=== PATIENT | female | born 1980 | race Caucasian/White ===

== ENCOUNTER 2016-12-13 19:27 | Emergency (ER) | payer MEDICAID, OTHER ==
[2016-12-13 20:24] LABS: BLOOD UREA NITROGEN 8 mg/dL (7-17); CALCIUM 9.4 mg/dL (8.4-10.2); CHLORIDE 103 mmol/L (98-107); CREATININE 0.9 mg/dL (0.5-1.0); EST GLOMERULAR FILTRATION RATE > 60 mL/min; GLUCOSE 88 mg/dL (70-100); POTASSIUM 3.7 mmol/L (3.5-5.1); SODIUM 139 mmol/L (137-145)
[2016-12-13] MEDS ORDERED: KETOROLAC TROMETHAMINE 30 MG/ML VIAL ONE (20:43)
[2016-12-13] MEDS ORDERED: HYDROmorphone HCL 1 MG/ML SYR ONE ×2 (21:02→21:41)
[2016-12-13] MEDS ORDERED: HYDROmorphone HCL 2 MG TABLET PO ONE (21:48)
--- NOTE | 2016-12-13 22:10 | ER NURSING DOCUMENTATION ---
[facility] Name:Nicolasa Wasserman Age:36 yrs Sex:Female :1980 Arrival Date:12/13/2016 Time:19:27 Bed3 Private MD: Diagnosis:Renal Colic Presentation: 12/13 19:32 Presenting complaint: Patient states: Pt. states that she has been having left abdomen ke and left flank pain x 1.5 weeks, she has history of kidney stones and that is what she suspects that this is. She was seen in [place] ER 2 days ago after pain intensified and she was vomiting and unable to keep liquids down - they did an US to confirm that there was no obstruction, no CT done. Tonight increased pain and vomiting again - home meds not controlling symptoms. Transition of care: Home. Notified ED Physician of Dr. Hernandez notified. 19:32 Acuity: LAN 3 ke 19:32 Method Of Arrival: Private Vehicle Triage Assessment: 19:56 General: Appears uncomfortable, well developed, well nourished, Behavior is ke cooperative, pleasant, quiet. Pain: Complains of pain in left upper quadrant and left lower quadrant Pain radiates to left low back Pain currently is 8 out of 10 on a pain scale. EENT: Oral mucosa is moist. Neuro: Level of Consciousness is awake, alert, Oriented to person, place, time, event, Moves all extremities. Cardiovascular: Capillary refill < 3 seconds Heart tones S1 S2 present. Respiratory: Airway is patent Trachea midline Breath sounds are clear bilaterally. GI: Abdomen is flat, non- distended Bowel sounds present X 4 quads. Abdomen is tender to palpation in left upper quadrant and left lower quadrant. : Urine is clear. Derm: Skin is intact, is healthy with good turgor, Skin is pale. Musculoskeletal: Circulation, motion, and sensation intact Capillary refill < 3 seconds Range of motion intact in all extremities. Historical: - Allergies: PENICILLINS; - Home Meds: 1. hydrocodone-acetaminophen Oral 2. Ibuprofen Oral 3. Zofran Oral 4. Flomax Oral 5. Naproxen Oral - PMHx: KIDNEY STONES; Asthma; - PSHx: left shoulder surgery; Endometriosis surgery; APPENDECTOMY; - Tetanus: < 10 years. - Ebola Screening: : Patient negative for fever greater than or equal to 101.5 degrees Fahrenheit, and additional compatible Ebola Virus Disease symptoms. Patient denies exposure to infectious person. Patient denies travel to an Ebola-affected area in the 21 days before illness onset. No symptoms or risks identified at this time. . - Immunization history: Flu Vaccine < 1 year. - Social history: Smoking status: Patient states was never smoker of tobacco. Screenin:14 Infectious Disease Risk None. Abuse screen: Denies threats or abuse. Denies injuries ke from another. Nutritional screening: No deficits noted. Assessment: 20:50 Reassessment: Pt. says pain is only minimally improved after Toradol. Dr. Gaviria ordered ke Dilaudid as noted.. 21:10 Reassessment: Pain down to 6/10 after first dose of Dilaudid. ke 21:25 Reassessment: Pain down to 4/10 after second dose of Dilaudid.. ke 21:45 Reassessment: Pain down to 1 after 3rd dose of Dilaudid.. ke 22:07 Reassessment: Patient states feeling better. Pain still at 1 - preparing for DC. ke Vital Signs: 19:40 BP 140 / 68; Pulse 80; Resp 14; Temp 97.7; Pulse Ox 98% on R/A; Weight 63.5 kg; Height ke 5 ft. 9 in. (175.26 cm); Pain 8/10; 20:37 BP 115 / 78; Pulse 78; Resp 14; Pulse Ox 94% on R/A; ke 21:15 BP 118 / 74; Pulse 74; Resp 14; Pulse Ox 96% on R/A; Pain 6/10; ke 21:35 BP 116 / 77; Pulse 75; Resp 14; Pain 4/10; ke 22:09 BP 124 / 80; Pulse 74; Resp 14; Pulse Ox 95% ; ke 19:40 Body Mass Index 20.67 (63.50 kg, 175.26 cm) ke ED Course: 19:29 Patient arrived in ED. ma1 19:32 Akiko Rick, RN is Primary Nurse. ke 19:45 Inserted peripheral IV: 20 gauge in left forearm and blood collected. ke 19:52 Triage completed. ke 20:[address] Gaviria notified. ke 20:12 Valuables Remains with patient Patient has correct armband on for positive ke identification. Placed in gown. Bed in low position. Call light in reach. 20:14 Urine collected. Clean catch specimen. ke 20:30 Sherman Gaviria MD is Attending Physician. tl1 22:08 Discontinued intact, bleeding controlled, pressure dressing applied, No ke redness/swelling at site. Administered Medications: Completed: NS 0.9% 1000 ml IV at 100 ml/hr once 19:45 Drug: NS 0.9% 1000 ml; Route: IV; Rate: 100 ml/hr; Site: left forearm; ke 22:07 Follow up: IV Status: Completed infusion; IV Intake: 1000ml ke 20:32 Drug: Toradol 15 mg; Route: IVP; Site: left forearm; ke 20:56 Follow up: Response: Pain is unchanged, physician notified ke 20:56 Drug: Dilaudid 0.5 mg; Route: IVP; Site: left forearm; ke 21:24 Follow up: Response: Pain is decreased ke 21:15 Drug: Dilaudid 0.5 mg; Route: IVP; Site: left forearm; ke 21:28 Follow up: Response: Pain is decreased ke 21:38 Drug: Dilaudid 0.5 mg; Route: IVP; Site: left forearm; ke 22:10 Follow up: Response: Pain is decreased ke 21:38 Drug: Dilaudid 2 mg; {Note: Dispensed to go home with pt..} Route: PO; ke 22:10 Follow up: Response: Dispensed at discharge. ke Point of Care Testing: Urine Dip: 20:15 pH: 6.5; ; Specific [place]: 1.025; Ketones: 1 mg/dL; Glucose: Negative; Protein: ke Negative; Leukocytes: Negative; Nitrite: Negative ; Blood: Non Hemolyzed Trace; Bilirubin: Negative ; Urobilinogen: Normal Intake: 22:07 IV: 1000ml; Total: 1000ml. ke Outcome: 21:28 Discharge ordered by . tl1 22:08 Discharged to home ke 22:08 Condition: improved 22:08 Discharge instructions given to patient, Instructed on discharge instructions, follow up and referral plans. medication usage, no drinking with medication, urine strainer. 22:09 Patient left the ED. ke Signatures: Sherman Gaviria MD MD tl1 Akiko Rick RN RN ke Addison, Melissa neEtienne
--- NOTE | 2016-12-13 22:10 | ER PHYSICIAN DOCUMENTATION ---
Physician Documentation [facility] Name:Nicolasa Wasserman Age:36 yrs Sex:Female :1980 Arrival Date:12/13/2016 Time:19:27 Bed3 Private MD: Sherman Sanford Disposition: 12/13 21:45 Chart complete. tl1 Disposition: 12/13/16 21:28 Discharged to Home/Self Care. Impression: Renal Colic. - Condition is Good. - Discharge Instructions: KIDNEY STONE w/ Colic. - Prescriptions for Dilaudid 2 mg Oral Tablet - take 1 tablet by ORAL route every 6 hours As needed; 10 tablet. Zofran 4 mg Oral Tablet - take 1-2 tablet by ORAL route every 4-6 hours As needed; 10 tablet. - Medical Reconciliation form form. - Follow up: Private Physician; When: 4- 6 days; Reason: Recheck today's complaints, Continuance of care. - Problem is new. - Symptoms have improved. HPI: 20:31 This 36 yrs old Female presents to ER via Private Vehicle with complaints of tl1 Possible Kidney Stone. 21:32 She has a h/o kidney stones and has been told she has several in both kidneys, tl1 diagnosed by CT X 2.. She has had renal colic twice in the last year, with the 3rd episode coming on 3 days ago; this is typical. She was seen yesterday at [facility] where a renal u/s and u/a were reportedly negative. She was treated with naproxen, HC/APAP, and Flomax. Today the pain has been persistent, waxing and waning, and with the nausea and vomiting, she has not been able to keep down pain medication. She denies f/c/s, gross hematuria, dysuria. No vag d/c or bleeding. She says she had what sounds like an endometrial ablation for endometriosis, and that she cannot become . Denies diarrhea, blood in stools. She is a nurse here, on Med Surg.. Historical: - Allergies: PENICILLINS; - Home Meds: 1. hydrocodone-acetaminophen Oral 2. Ibuprofen Oral 3. Zofran Oral 4. Flomax Oral 5. Naproxen Oral - PMHx: KIDNEY STONES; Asthma; - PSHx: left shoulder surgery; Endometriosis surgery; APPENDECTOMY; - Tetanus: < 10 years. - Ebola Screening: : Patient negative for fever greater than or equal to 101.5 degrees Fahrenheit, and additional compatible Ebola Virus Disease symptoms. Patient denies exposure to infectious person. Patient denies travel to an Ebola-affected area in the 21 days before illness onset. No symptoms or risks identified at this time. . - Immunization history: Flu Vaccine < 1 year. - Social history: Smoking status: Patient states was never smoker of tobacco. ROS: 21:40 Abdomen/GI: Positive for nausea, vomiting, Negative for diarrhea, constipation, tl1 hematemesis, black/tarry stool, rectal bleeding. 21:40 : Positive for flank pain, Negative for injury or acute deformity, urinary symptoms, hematuria, burning with urination, difficulty urinating, foul smelling urine, vaginal bleeding, vaginal discharge. Exam: 21:40 Head/Face: Normocephalic, atraumatic. tl1 21:40 Eyes: Pupils equal round and reactive to light, extra-ocular motions intact. Lids and tl1 lashes normal. Conjunctiva and sclera are non-icteric and not injected. Cornea within normal limits. Periorbital areas with no swelling, redness, or edema. 21:40 Constitutional: The patient appears alert, awake, in obvious pain, restless, uncomfortable. 21:40 Cardiovascular: Rate: normal, Rhythm: regular, Heart sounds: normal, Edema: is not appreciated, JVD: is not appreciated. 21:40 Respiratory: the patient does not display signs of respiratory distress, Respirations: normal, Breath sounds: are normal. 21:40 Abdomen/GI: Inspection: abdomen appears normal, Palpation: soft, moderate abdominal tenderness, in the left lower quadrant, voluntary guarding, is not appreciated, involuntary guarding, is not appreciated, no appreciated organomegaly. 21:40 Back: CVA tenderness, that is moderate, is noted on the left. 21:40 : Bladder: is normal, tenderness, is not appreciated. 21:40 Skin: Exam negative for acute changes. 21:40 Neuro: Exam negative for acute changes. Vital Signs: 19:40 BP 140 / 68; Pulse 80; Resp 14; Temp 97.7; Pulse Ox 98% on R/A; Weight 63.5 kg; Height ke 5 ft. 9 in. (175.26 cm); Pain 8/10; 20:37 BP 115 / 78; Pulse 78; Resp 14; Pulse Ox 94% on R/A; ke 21:15 BP 118 / 74; Pulse 74; Resp 14; Pulse Ox 96% on R/A; Pain 6/10; ke 21:35 BP 116 / 77; Pulse 75; Resp 14; Pain 4/10; ke 22:09 BP 124 / 80; Pulse 74; Resp 14; Pulse Ox 95% ; ke 19:40 Body Mass Index 20.67 (63.50 kg, 175.26 cm) ke MDM: 20:30 Patient medically screened. tl1 20:53 Data reviewed: vital signs, nurses notes, lab test result(s), electrolytes, urinalysis, tl1 hematuria, HCG is negative, and as a result, I will discharge patient. 21:42 ED course: Pain, nausea and vomiting well controlled with toradol, dilaudid and zofran. tl1 She was eager to go home.. 12/13 20:25 Order name: BASIC METABOLIC PANEL; Complete Time: 20:53 EDMS 12/13 20:52 Interpretation: Normal: SODIUM 139; POTASSIUM 3.7; CHLORIDE 103; CARBON DIOXIDE 27; tl1 GLUCOSE 88; BLOOD UREA NITROGEN 8; CREATININE 0.9; EST GLOMERULAR FILTRATION RATE > 60. 12/13 20:28 Order name: HCG, SERUM; Complete Time: 20:53 EDMS 12/13 20:53 Interpretation: Normal: HCG, SERUM NEGATIVE. tl1 12/13 20:08 Order name: Urine Dip; Complete Time: 20:09 ke 12/13 20:08 Order name: Iv Saline Lock; Complete Time: 20:09 ke Dispensed Medications: Completed: NS 0.9% 1000 ml IV at 100 ml/hr once 19:45 Drug: NS 0.9% 1000 ml; Route: IV; Rate: 100 ml/hr; Site: left forearm; ke 22:07 Follow up: IV Status: Completed infusion; IV Intake: 1000ml ke 20:32 Drug: Toradol 15 mg; Route: IVP; Site: left forearm; ke 20:56 Follow up: Response: Pain is unchanged, physician notified ke 20:56 Drug: Dilaudid 0.5 mg; Route: IVP; Site: left forearm; ke 21:24 Follow up: Response: Pain is decreased ke 21:15 Drug: Dilaudid 0.5 mg; Route: IVP; Site: left forearm; ke 21:28 Follow up: Response: Pain is decreased ke 21:38 Drug: Dilaudid 0.5 mg; Route: IVP; Site: left forearm; ke 22:10 Follow up: Response: Pain is decreased ke 21:38 Drug: Dilaudid 2 mg; {Note: Dispensed to go home with pt..} Route: PO; ke 22:10 Follow up: Response: Dispensed at discharge. Point of Care Testing: Urine Dip: 20:15 pH: 6.5; ; Specific [place]: 1.025; Ketones: 1 mg/dL; Glucose: Negative; Protein: ke Negative; Leukocytes: Negative; Nitrite: Negative ; Blood: Non Hemolyzed Trace; Bilirubin: Negative ; Urobilinogen: Normal Signatures: Sherman Gaviria MD MD tl1 Akiko Rick RN RN ke
== END 2016-12-13 22:10 | disposition home or self-care (01) ==
LOC: ER 19:27
DX: N23 Unspecified renal colic (principal); R10.32 Left lower quadrant pain; M54.5 Low back pain; R11.0 Nausea; Z87.442 Personal history of urinary calculi; Z79.899 Other long term (current) drug therapy
CPT/HCPCS: 80048; 84703; 96361; 96374; 96375; 96376; 99284; J1170; J1885

== ENCOUNTER 2016-12-18 11:49 | Emergency (ER) | payer MEDICAID, OTHER ==
[2016-12-18 12:26] LABS: BASOPHIL# 0.1 X 10^3uL (0.0-0.1); BASOPHILS 1.1 % (0.0-2.0); EOSINOPHILS 2.1 % (0.0-6.0); EOSINOPHILS# 0.1 X 10^3uL (0.0-0.4); HEMATOCRIT 43.6 % (36.0-48.0); HEMOGLOBIN 14.7 g/dL (12.0-16.0); LYMPHOCYTES 38.6 % (20.0-40.0); LYMPHOCYTES# 1.9 X 10^3uL (0.8-3.8); MEAN CELL VOLUME 92.1 fL (80.0-100.0); MEAN CORPUS. HGB CONCENTRATION 33.7 g/dL (32.0-36.0); MEAN PLATELET VOLUME 7.3 fL (7.4-10.4); MONOCYTES 9.4 % (2.0-10.0); MONOCYTES# 0.5 X 10^3uL (0.2-1.0); NEUTROPHILS 48.8 % (54.0-75.0); NEUTROPHILS# 2.4 X 10^3uL (2.6-6.7); PLATELET COUNT 290 X 10^3uL (130-440); RED BLOOD COUNT 4.74 X 10^6uL (4.20-6.10); RED CELL DISTRIBUTION WIDTH 12.8 % (11.5-14.5)
[2016-12-18 12:31] LABS: BLOOD UREA NITROGEN 16 mg/dL (7-17); CALCIUM 9.8 mg/dL (8.4-10.2); CHLORIDE 105 mmol/L (98-107); CREATININE 1.1 mg/dL (0.5-1.0); EST GLOMERULAR FILTRATION RATE 59 mL/min; POTASSIUM 3.8 mmol/L (3.5-5.1); SODIUM 141 mmol/L (137-145)
[2016-12-18] MEDS ORDERED: HYDROmorphone HCL 1 MG/ML SYR ONE ×3 (12:39→14:56)
[2016-12-18 12:40] LABS: GLUCOSE 49 mg/dL (70-100)
[2016-12-18] MEDS ORDERED: ONDANSETRON HCL 4 MG/2 ML VIAL ONE (12:40)
[2016-12-18] MEDS ORDERED: KETOROLAC TROMETHAMINE 30 MG/ML VIAL ONE (12:40)
--- NOTE | 2016-12-18 13:31 | CT REPORT ---
HISTORY: Flank pain. COMPARISON: None. TECHNIQUE: This examination was performed using automated exposure control, adjustment of mA or kV according to patient size, and/or use of iterative reconstruction technique. Contiguous axial images of the abdom en and pelvis were obtained without oral or IV contrast. Coronal reconstructions. FINDINGS: Lung bases: Axial image 10 series 2 demonstrates an indeterminate left lower lobe noncalcified nonspe cific 4 mm pulmonary nodule. Axial image 9 series 2 demonstrates an additional left lower lobe latera l 4 mm pulmonary nodule. Axial image 8 series 2 demonstrates a indeterminate 4 mm right lower lung pu lmonary nodule. Liver: Unremarkable. Biliary: Unremarkable. Spleen: Unremarkable. Pancreas: Unremarkable. Adrenal glands: Unremarkable. Urinary tract: No urinary tract calculus or hydronephrosis. The tiny calcifications seen within the p tirso on axial image 82 and sagittal images 36-40 series 4 are favored to represent pelvic phlebolith s or vascular calcifications. Bowel: High-density material noted at the level of cecum consistent with likely post appendectomy arti nges; recommend clinical correlation patient's operative history. The pelvic cyst identified and ther e are no secondary signs of appendicitis seen. Mild colon constipation otherwise the bowel is unremar kable in appearance. Anterior abdominal wall: Small fat containing periumbilical hernia. Mesentery/peritoneum/omentum: No mesenteric lymphadenopathy or inflammatory changes. Retroperitoneum: No retroperitoneal lymphadenopathy is identified. Aortoiliac system is within norm al limits. Pelvis: 4.5 cm low density collection within the right ovary. Pelvic viscera is otherwise unremarkabl e. Osseous structures: No suspicious osseous lytic or blastic lesions identified. Critical results were communicated with SINGH GUTIÉRREZ MD at 12/18/2016 1:29 PM. IMPRESSION: No evidence of urinary tract calculus or hydronephrosis. Indeterminate 4.5 cm low-density lesion within the right adnexa. Given patient's symptoms are on the right consider pelvic ultrasound for further evaluation. Indeterminate bilateral lower lung pulmonary nodules on average measuring 4 mm in greatest dimension. Recommend follow-up CT chest in 6 months. Final Electronic Signature: This report was electronically signed by Mitchell Ewing MD on 12/18/2016 1:2 9 PM. [email or web address] /
--- NOTE | 2016-12-18 15:50 | ER PHYSICIAN DOCUMENTATION ---
Physician Documentation [facility] Name:Nicolasa Wasserman Age:36 yrs Sex:Female :1980 Arrival Date:12/18/2016 Time:11:49 Bed3 Private MD:Sydni Jay ED, Chris Disposition: 12/18/16 14:48 Discharged to Home/Self Care. Impression: Ovarian Cyst - : 4 cm size; Complex, Pelvic Pain. - Condition is Fair. - Discharge Instructions: OVARIAN CYST, PELVIC PAIN, Unknown Cause. - Prescriptions for Zofran 4 mg Oral - take 1 tablet by ORAL route every 6 hours; 6 tablet. Hydrocodone- Acetaminophen 5-325 mg Oral Tablet - take 1 tablet by ORAL route every 6 hours As needed; 20 tablet. - Medical Reconciliation form form. - Follow up: Marcio Arroyo MD; When: Tomorrow; Reason: Recheck today's complaints, Continuance of care. - Problem is new. - Symptoms have improved. - Notes: Take Ibuprofen 600mg by mouth every 6 hours with food for 2 - 3 days. Take Hydrocodone one tab by mouth every 6 hours with food if needed for severe pain Take Zofran 4mg under your tongue every 6 hours as needed for nausea or vomiting Drink plenty of water every day. Follow up with Dr. Dent at the [facility] tomorrow at 3:00 PM. HPI: 12/18 11:55 This 36 yrs old Female presents to ER via Private Vehicle with complaints of cd Possible Kidney Stone. 11:55 The patient presents with abdominal pain in the left lower quadrant. Onset: The cd symptoms/episode began/occurred acutely, last night, Patient was seen by Dr. Miguel Gaviria in the Emergency Department 5 days ago for very similar pain and was diagnosed with a kidney stone. She felt better over the next two days, but the pain has returned especially last night and this morning. She has had kidney stones in the past. No CT Scan of the abdomen was performed to confirm the presence of a stone or obstruction.. The symptoms do not radiate. Associated signs and symptoms: Pertinent positives: anorexia, nausea, vomiting, Pertinent negatives: blood in stools, chest pain, diarrhea, dysuria, fever, hematuria, shortness of breath, vomiting blood. Modifying factors: The symptoms are alleviated by nothing, the symptoms are aggravated by touching the area. Severity of pain: At its worst the pain was severe in the emergency department the pain is unchanged. The patient has experienced a previous episode, approximately 5 days ago. Historical: - Allergies: PENICILLINS; - Home Meds: 1. hydromorphone Oral (Last dose: 12/18/2016 02:00) 2. Motrin Oral (Last dose: 12/18/2016 06:00) 3. Ambien Oral 4. Albuterol Nebulizer - Tetanus: < 10 years. - Ebola Screening: : Patient negative for fever greater than or equal to 101.5 degrees Fahrenheit, and additional compatible Ebola Virus Disease symptoms. Patient denies exposure to infectious person. Patient denies travel to an Ebola-affected area in the 21 days before illness onset. . - Immunization history: Flu Vaccine < 1 year. - Social history: Smoking status: Patient states was never smoker of tobacco. ROS: 14:00 ENT: Negative for injury, pain, epistaxis and discharge. cd Cardiovascular: Negative for chest pain, palpitations, edema and pleuritic pain. Respiratory: Negative for shortness of breath, dyspnea on exertion, cough, sputum production, wheezing, hemoptysis and pleuritic chest pain. Back: Negative for injury, pain or muscle spasms. : Negative for injury, bleeding, discharge, dysuria, frequency, urgency and swelling. MS/Extremity: Negative for injury, deformity, edema, calf tenderness, pain or coldness. Skin: Negative for injury, rash, itching and discoloration. 14:00 Neuro: Negative for headache, weakness, numbness, tingling, and seizure. cd 14:00 Constitutional: Positive for poor PO intake, Negative for chills, fever. 14:00 Abdomen/GI: Positive for abdominal pain, nausea, vomiting, anorexia, Negative for diarrhea, constipation, abdominal distension, hematemesis, black/tarry stool, rectal bleeding. 14:00 All other systems are negative. Exam: ENT: Nares patent. No nasal discharge, no septal abnormalities noted. Tympanic membranes are normal and external auditory canals are clear. Oropharynx with no redness, swelling, or masses, exudates, or evidence of obstruction, uvula midline. Mucous membranes dry Cardiovascular: Regular rate and rhythm with a normal S1 and S2. No gallops, murmurs, or rubs. Normal PMI, no JVD. No pulse deficits. Respiratory: Lungs have equal breath sounds bilaterally, clear to auscultation and percussion. No rales, rhonchi or wheezes noted. No increased work of breathing, no retractions or nasal flaring. Back: No spinal tenderness. No costovertebral tenderness. Full range of motion. Skin: Warm, dry with normal turgor. Normal color with no rashes, no lesions, and no evidence of cellulitis. MS/ Extremity: Pulses equal, no cyanosis. Neurovascular intact. Full, normal range of motion. 14:15 Neuro: Awake and alert, GCS 15, oriented to person, place, time, and situation. cd Cranial nerves II-XII grossly intact. Motor strength 5/5 in all extremities. Sensory grossly intact. Cerebellar exam normal. Normal gait. 14:15 Constitutional: The patient appears alert, awake, non-diaphoretic, non-toxic, well developed, well nourished, anxious, in obvious distress, moderately distressed. 14:15 Abdomen/GI: Inspection: abdomen appears normal, Bowel sounds: normal, Palpation: moderate abdominal tenderness, in the left lower quadrant, but increased in the RLQ when palpating, Rectal exam: Indicators: McBurney's point is tender, Merino's sign is negative. Vital Signs: 12:01 BP 120 / 81; Pulse 100; Resp 20; Temp 99.9(TE); Pulse Ox 100% ; Pain 6/10; cb 12:42 BP 106 / 90; Pulse 92; Pulse Ox 95% on R/A; cb 13:08 BP 116 / 79; Pulse 67; Pulse Ox 99% on R/A; cb 13:30 BP 110 / 69; Pulse 70; Pulse Ox 97% on R/A; cb Saira Coma Score: 14:15 Eye Response: spontaneous(4). Verbal Response: oriented(5). Motor Response: obeys cd commands(6). Total: 15. MDM: 11:56 Patient medically screened. cd 12:05 Data interpreted: Pulse oximetry: on room air is 97 %. Interpretation: normal. cd 12:10 Differential diagnosis: bowel obstruction, diverticulitis, Ectopic , cd Endometriosis, non-specific abd pain, Ovarian Torsion, Pyelonephritis, Ureterolithiasis, urinary tract infection, Ruptured Ovarian Cyst. 14:15 Data reviewed: vital signs, nurses notes, old medical records, lab test result(s), cd radiologic studies, CT scan, ultrasound, and as a result, I will discharge patient, initiate a consult, from a [employer], administer IV fluids, NS bolus, NS maintenence, prescribe pain medication, Dilaudid. 14:40 Counseling: I had a detailed discussion with the patient and/or guardian regarding: the cd historical points, exam findings, and any diagnostic results supporting the discharge/admit diagnosis, lab results, radiology results, the need for outpatient follow up, for a recheck, for a referral to a specialist, an OB/Gyne specialist, to return to the emergency department if symptoms worsen or persist or if there are any questions or concerns that arise at home. Response to treatment: the patient's symptoms have markedly improved after treatment, the patient's condition has returned to base line, and as a result, I will discharge patient. Physician consultation: Marcio Arroyo MD was called at 14:35, was contacted at 14:36, regarding consult, patient's condition, outpatient follow-up, tomorrow, and will see patient in office, tomorrow. 12/18 12:27 Order name: CBC AUTO DIF, MDIF/RMOR IF IND; Complete Time: 13:34 EDMA 12/20 12:33 Interpretation: Normal. 12/18 12:31 Order name: HCG, SERUM; Complete Time: 13:34 EDMS 12/20 12:33 Interpretation: Normal. 12/18 12:41 Order name: BASIC METABOLIC PANEL; Complete Time: 13:34 EDMS 12/20 12:34 Interpretation: Normal Except: GLUCOSE 49; Hypoglycemia. 12/18 13:34 Order name: CAT SCAN; A[place] [id number]; Complete Time: 12:34 EDMA 12/20 12:34 Interpretation: Abnormal: See report. 12/18 11:57 Order name: I & O; Complete Time: 12:19 12/18 11:57 Order name: NPO; Complete Time: 12:19 12/18 11:57 Order name: Pulse Ox Continuous; Complete Time: 12:19 12/18 11:57 Order name: Urine Strainer; Complete Time: 12:19 12/18 13:35 Order name: Accucheck; Complete Time: 13:53 cd Dispensed Medications: 11:42 Drug: Zofran 4 mg; Route: IVP; Infused Over: 2 mins; Site: left antecubital; cb 15:40 Follow up: Response: Nausea is decreased cb 11:45 Drug: Dilaudid 1 mg; Route: IVP; Site: left antecubital; cb 15:40 Follow up: Response: Pain is decreased cb 12:40 Drug: NS 0.9% 1000 ml; Route: IV; Rate: bolus; Site: left antecubital; cb 13:00 Follow up: IV Status: Infusion continued; IV Intake: 1000ml cb 12:41 Drug: Toradol 30 mg; Route: IVP; Site: left antecubital; cb 15:39 Follow up: Response: No adverse reaction cb 13:15 Drug: NS 0.9% 1000 ml; Route: IV; Rate: 250 ml/hr; Site: left antecubital; cb 15:00 Follow up: IV Status: Completed infusion; IV Intake: 1000ml cb 13:55 Drug: Dilaudid 0.5 mg; Route: IVP; Site: left antecubital; cb 15:40 Follow up: Response: Pain is decreased cb 15:00 Drug: Dilaudid 0.5 mg; Route: IVP; Site: left antecubital; cb 15:41 Follow up: Response: Pain is decreased cb Point of Care Testing: Blood Glucose: 13:30 Blood Glucose: 86 mg/dL; cb Urine Dip: 14:56 pH: 6.5; ; Specific [place]: 1.025; Ketones: Negative; Glucose: Negative; Protein: ma Negative; Leukocytes: Negative; Nitrite: Negative ; Blood: Negative; Bilirubin: Negative ; Urobilinogen: Normal Ranges: Critical Glucose Levels:Adult <50 mg/dl or >400 mg/dl <40 mg/dl or >180 mg/dl Signatures: Mary Can RN RN cb Daley, Chris, MD MD cd
--- NOTE | 2016-12-18 15:50 | ER NURSING DOCUMENTATION ---
Nurse's Notes [facility] Name:Nicolasa Wasserman Age:36 yrs Sex:Female :1980 Arrival Date:12/18/2016 Time:11:49 Bed3 Private MD:Sydni Jya Diagnosis:Ovarian Cyst-: 4 cm size; Complex;Pelvic Pain Presentation: 12/18 11:58 Presenting complaint: Patient states: possible kidney stone. Transition of care: Home. cb 11:58 Method Of Arrival: Private Vehicle cb 11:58 Notified ED Physician of patient's arrival and CC Dr. Hernandez notified. cb 11:58 Acuity: LAN 3 cb Triage Assessment: 11:58 General: Appears in no apparent distress, well groomed, Behavior is cooperative. cb 11:58 Pain: Complains of pain in posterior aspect of left lateral abdomen and left lower cb quadrant Pain radiates to left femoral area Pain currently is 6 out of 10 on a pain scale. EENT: No deficits noted. Neuro: Level of Consciousness is awake, alert, Oriented to person, place, time, event. Cardiovascular: Pulses are 2+ in left radial artery. Respiratory: Airway is patent Trachea midline Respiratory effort is even, unlabored, Respiratory pattern is regular, symmetrical, Breath sounds are clear in right upper lobe, left upper lobe, right middle lobe, left lower lobe and right lower lobe. GI: Abdomen is flat, non- distended Bowel sounds diminished in right upper quadrant, left upper quadrant, right lower quadrant and left lower quadrant Reports nausea. : Reports pain in left flank(s), lower quadrant(s) since 0200am. Derm: Denies any nonhealing wounds. Musculoskeletal: No deficits noted. Historical: - Allergies: PENICILLINS; - Home Meds: 1. hydromorphone Oral (Last dose: 12/18/2016 02:00) 2. Motrin Oral (Last dose: 12/18/2016 06:00) 3. Ambien Oral 4. Albuterol Nebulizer - Tetanus: < 10 years. - Ebola Screening: : Patient negative for fever greater than or equal to 101.5 degrees Fahrenheit, and additional compatible Ebola Virus Disease symptoms. Patient denies exposure to infectious person. Patient denies travel to an Ebola-affected area in the 21 days before illness onset. . - Immunization history: Flu Vaccine < 1 year. - Social history: Smoking status: Patient states was never smoker of tobacco. Screenin:06 Infectious Disease Risk None. Abuse screen: Denies threats or abuse. Denies injuries cb from another. Nutritional screening: No deficits noted. Vital Signs: 12:01 BP 120 / 81; Pulse 100; Resp 20; Temp 99.9(TE); Pulse Ox 100% ; Pain 6/10; cb 12:42 BP 106 / 90; Pulse 92; Pulse Ox 95% on R/A; cb 13:08 BP 116 / 79; Pulse 67; Pulse Ox 99% on R/A; cb 13:30 BP 110 / 69; Pulse 70; Pulse Ox 97% on R/A; cb Saira Coma Score: 14:15 Eye Response: spontaneous(4). Verbal Response: oriented(5). Motor Response: obeys cd commands(6). Total: 15. ED Course: 11:50 Patient arrived in ED. ds 11:51 Sydni Jay DO is Private Physician. ds 11:56 Edilson Hernandez MD is Attending Physician. cd 11:57 Mary Can, JESUS is Primary Nurse. cb 11:58 Triage completed. cb 12:15 Inserted peripheral IV: 18 gauge in left antecubital area and blood collected. while cb cleaning IV site with dry gauze accidently pulled 18 G IV Missed attempts: 20 gauge in left wrist. 12:20 Labs drawn. (by ED staff). Sent per order to lab. cb 12:30 Inserted peripheral IV: 20 gauge in left forearm. ma 13:15 Patient moved to [place]. tt 13:15 Patient moved back from [place]. tt 14:03 Patient moved to [facility]. mk 14:06 Valuables Remains with patient Patient has correct armband on for positive cb identification. Placed in gown. Bed in low position. Call light in reach. Side rails up X2. Pulse Ox - RN Monitoring Only NIBP On - RN Monitoring Only. 14:22 Patient moved back from [facility]. mk 14:47 Marcio Arroyo MD is Referral Physician. cd Administered Medications: 11:42 Drug: Zofran 4 mg; Route: IVP; Infused Over: 2 mins; Site: left antecubital; cb 15:40 Follow up: Response: Nausea is decreased cb 11:45 Drug: Dilaudid 1 mg; Route: IVP; Site: left antecubital; cb 15:40 Follow up: Response: Pain is decreased cb 12:40 Drug: NS 0.9% 1000 ml; Route: IV; Rate: bolus; Site: left antecubital; cb 13:00 Follow up: IV Status: Infusion continued; IV Intake: 1000ml cb 12:41 Drug: Toradol 30 mg; Route: IVP; Site: left antecubital; cb 15:39 Follow up: Response: No adverse reaction cb 13:15 Drug: NS 0.9% 1000 ml; Route: IV; Rate: 250 ml/hr; Site: left antecubital; cb 15:00 Follow up: IV Status: Completed infusion; IV Intake: 1000ml cb 13:55 Drug: Dilaudid 0.5 mg; Route: IVP; Site: left antecubital; cb 15:40 Follow up: Response: Pain is decreased cb 15:00 Drug: Dilaudid 0.5 mg; Route: IVP; Site: left antecubital; cb 15:41 Follow up: Response: Pain is decreased cb Point of Care Testing: Blood Glucose: 13:30 Blood Glucose: 86 mg/dL; cb Urine Dip: 14:56 pH: 6.5; ; Specific [place]: 1.025; Ketones: Negative; Glucose: Negative; Protein: ma Negative; Leukocytes: Negative; Nitrite: Negative ; Blood: Negative; Bilirubin: Negative ; Urobilinogen: Normal Ranges: Intake: 13:00 IV: 1000ml; Total: 1000ml. cb 15:00 IV: 1000ml; Total: 2000ml. cb Outcome: 14:48 Discharge ordered by . cd 15:40 Discharged to home ambulatory, with family. cb 15:40 Condition: stable 15:40 Discharge instructions given to patient, Instructed on discharge instructions, follow up and referral plans. Demonstrated understanding of instructions, medications, Prescriptions given X 2. 15:49 Patient left the ED. cb 12/19 09:40 Discharge F/U Call: Unable to reach: no answer st 12/20 09:40 Discharge F/U Call: Unable to reach: no answer st Signatures: Mary Can RN Amina Huynh cb, RN RN st Abuso, Melanie RN Juana Arriola ma, Edilson Jovel MD MD cd Kimbro, Marcy mk Terriere Jumana tt
--- NOTE | 2016-12-19 05:57 | US REPORT ---
Transabdominal and endovaginal imaging is correlated with CT scan earlier on the same date. The uterus appears unremarkable. It measures 6.4 cm x 2.6 cm x 4.0 cm. The endometrial stripe measures 10 mm in thickness. No mural abnormality is identified. The left ovary appears unremarkable. In the right adnexal region there is a complex cystic structure measuring 3.8 cm x 4.0 cm x 4.1 cm. No other abnormality is identified. No free fluid is identified. IMPRESSION: A 4.1 cm complex cystic lesion in the right adnexal region correlating with the CT scan finding. Appearance is suggestive of a hemorrhagic cyst. Other etiologies are not excluded. Further evaluation and/ or followup is recommended. Findings were personally reviewed with Dr. Hernandez upon completion of the examination. JN
== END 2016-12-18 15:50 | disposition home or self-care (01) ==
LOC: ER 11:49
DX: N83.201 Unspecified ovarian cyst, right side (principal); R10.31 Right lower quadrant pain; R10.32 Left lower quadrant pain; E86.0 Dehydration; R11.2 Nausea with vomiting, unspecified; Z79.899 Other long term (current) drug therapy
CPT/HCPCS: 74176; 76830; 76856; 80048; 84703; 85025; 96361; 96374; 96375; 96376; 99284; J1170; J1885; J2405

== ENCOUNTER 2016-12-20 06:24 | Day surgery (SDC) | payer OTHER, MEDICAID ==
[2016-12-20] MEDS ORDERED: MIDAZOLAM HCL 2 MG/2 ML SYR IV ONE (06:57)
[2016-12-20] MEDS ORDERED: LACTATED RINGERS 1,000 ML IV SCH ×3 (07:00→09:00)
[2016-12-20] MEDS ORDERED: FAMOTIDINE IN SALINE, ISO-OSM 20 MG/50 ML PIGGYBACK IV SCH ×2 (07:00→08:55)
[2016-12-20] MEDS ORDERED: LIDOCAINE HCL 1% 20 ML VIAL SUBCUT SCH ×2 (07:00→08:55)
[2016-12-20] MEDS ORDERED: FENTANYL 100 MCG/2 ML VIAL IV SCH ×2 (07:00→08:55)
[2016-12-20] MEDS ORDERED: ACETAMINOPHEN 1,000 MG/100 ML VIAL IV SCH ×2 (07:00→08:55)
[2016-12-20] MEDS ORDERED: SCOPOLAMINE 1.5 MG PATCH TD SCH ×2 (07:00→08:55)
[2016-12-20] MEDS ORDERED: METHYLENE BLUE 10 MG/ML VIAL IV ONE (07:07)
[2016-12-20] MEDS ORDERED: MIDAZOLAM HCL 2 MG/2 ML VIAL ONE (07:11)
[2016-12-20] MEDS ORDERED: ONDANSETRON HCL 4 MG/2 ML VIAL ONE ×2 (07:28→09:22)
[2016-12-20] MEDS ORDERED: LIDOCAINE HCL 1% 20 ML VIAL ONE (07:29)
[2016-12-20] MEDS ORDERED: DEXAMETHASONE 4 MG/ML VIAL ONE (07:29)
[2016-12-20] MEDS ORDERED: FENTANYL 100 MCG/2 ML VIAL ONE ×2 (07:29→09:21)
[2016-12-20] MEDS ORDERED: ROCURONIUM BROMIDE 50 MG/5 ML VIAL IV ONE (07:29)
[2016-12-20] MEDS ORDERED: SUCCINYLCHOLINE CHLORIDE 200 MG/10 ML VIAL ONE (07:29)
[2016-12-20] MEDS ORDERED: KETOROLAC TROMETHAMINE 30 MG/ML VIAL ONE (07:29)
[2016-12-20] MEDS ORDERED: SUGAMMADEX SODIUM 200 MG/2 ML VIAL IV ONE (07:30)
[2016-12-20] MEDS ORDERED: HYDROmorphone HCL 1 MG/ML SYR IV PRN (08:55)
[2016-12-20] MEDS ORDERED: ONDANSETRON HCL 4 MG/2 ML VIAL IV PRN (08:55)
--- NOTE | 2016-12-20 08:55 | PROCEDURE NOTE: GYN ---
[facility] Procedure - Brief Operative Note Date of procedure: 12/20/16 Pre-Op Diagnosis: Pelvic pain, right ovarian cyst Post-op diagnosis: other (Pelvic pain due to hemorrhagic corpus luteum) Procedure: Drainage of hemorrhagic corpus luteum and biopsy of cyst wall. Findings: Hemorrhagic right ovarian corpus luteum Anesthesia Type: General Physician: MELISSA BANKS Estimated Blood Loss: 25 Pathology: sent Sponge and instrument counts: correct Condition: stable Disposition: PACU
[2016-12-20 09:15] VITALS: TEMP 97.7
[2016-12-20] MEDS: FENTANYL 100 MCG/2 ML VIAL IV PRN ×2 (09:15→09:25)
[2016-12-20] MEDS: MORPHINE SULFATE 10 MG/ML SYR IV PRN ×2 (09:45→09:50)
[2016-12-20] MEDS ORDERED: MORPHINE SULFATE 10 MG/ML SYR ONE (09:51)
[2016-12-20 10:37] VITALS: O2SAT 95
[2016-12-20 10:41] VITALS: BP 110/79; PULSE 71; RESP 16
--- NOTE | 2016-12-21 05:13 | OPERATIVE REPORT ---
DATE OF SURGERY: 12/20/16 SURGEON: Marcio Arroyo MD ANESTHESIA: General. PREOPERATIVE DIAGNOSIS: Pelvic pain and complex right ovarian cyst. POSTOPERATIVE DIAGNOSIS: Hemorrhagic corpus luteal cyst of the right ovary and pelvic pain. OPERATION PERFORMED: Diagnostic laparoscopy with drainage of right ovarian cyst and cyst wall biopsy. FINDINGS: The external genitalia, vagina and cervix are without lesion. The left ovary is unremarkable. The right ovary has a 4 cm hemorrhagic corpus luteal cyst associated with it. There is no pelvic endometriosis noted on today s laparoscopy. PROCEDURE: The patient was taken to the operating theater and placed supine on the operating table. General endotracheal anesthesia is induced. She is placed in dorsal lithotomy position using Musa stirrups. Her abdomen, vagina and perineum were prepped, her bladder was drained with straight catheter, she is draped in the usual sterile fashion. The cervix was visualized in a Lucas cannula and single-tooth tenaculum are placed. An umbilical skin incision is made which is carried to the fascia. The fascia was scored in the midline with a knife and a 5 mm trocar is entered into the abdominal cavity and the abdomen was insufflated with 3 liters of carbon dioxide. The 5 mm scope is entered into the abdominal cavity, however, there is insufficient light through the 5 mm scope to allow adequate evaluation and treatment of her problem. Therefore the incision was enlarged and a 12 mm trocar entered through the umbilical incision and a 10 mm scope entered through this to allow adequate visualization. A suprapubic stab wound was made through which a 5 mm trocar was entered into the abdominal cavity and the pelvis inspected with findings as noted above. A left lower quadrant incision made through the previous left lower quadrant scar and a second 5 mm trocar was entered in the abdominal cavity. At this point the ovarian cortex overlying the cyst is incised and the cyst is partially dissected free at which point it spontaneously ruptures revealing serosanguineous fluid. The cyst wall itself appears to be quite smooth consistent with a corpus luteum and a biopsy is obtained. After assuring hemostasis, the pelvis was copiously irrigated. Due to technical difficulties with the 10 mm scope that developed at this time adequate visualization became impossible and I opted not to pursue suturing of the ovarian cortex or capsule. We made several attempts to correct the problem and again tried using the 5mm scope without success in achieving the needed visualization. Therefore, the instruments were removed and the carbon dioxide allowed to escape through the primary trocar sleeve. The umbilical fascial incision was closed with interrupted [id number] 0 Vicryl suture. The skin edges of this incision were then reapproximated using 4-0 Monocryl subcuticular suture. The 5 mm trocar sites were closed in simple [id number] 4-0 Monocryl sutures. Sterile dressings were applied. The Lucas cannula and single-tooth tenaculum were removed. The patient was placed supine on the operating table, she was awaken by anesthesia and taken to the recovery room in good condition. She tolerated the procedure well. There were no complications. ESTIMATED BLOOD LOSS: Approximately 25 mL. MTDD
--- NOTE | 2016-12-30 17:03 | PREOPERATIVE H&P ---
History of Present Illness (Marcio Arroyo M.D.; 12/19/2016 6:06 PM) The patient is a 36 year old female who presents for evaluation of pelvic pain. The onset of the pain began gradually over time and has been occurring in a persistent pattern for 3 weeks. The course has been increasing. The pain is described as moderate (to severe) and characterized as a deep ache. The pain is described as being located in the left lower quadrant and radiates to the back . Menses: Last menstrual period date: (3 weeks ago, pain started shortly afterwards) and regular. Currently : no (negative test in the ER). The symptoms are aggravated by standing, walking and exercise. The symptoms are relieved by analgesics and rest. The symptoms have been associated with bloating, nausea and vomiting, while the symptoms have not been associated with constipation, diarrhea, dysuria, hematuria or fever / chills. There is a medical history of endometriosis (laparoscopy 1 year ago) and recurrent nephrolithiasis. Previous evaluations have included ultrasound (reviewed films , has 4-5cm complex right adnexal mass consistent with hemorrhagic cyst), CT scan (no uretero or nephrolithiasis, right adnexal mass noted) and laboratory tests (done in ER). She is currently treating the discomfort with analgesics. Results of the current therapy includes: has to use medications regularly, has not been able to work and has had 3 separate visits to the ER for evaluation and pain management. Additional reasons for visit: Preop Visit is described as the following: The patient does not feel well. Surgical procedures include: laparoscopy and other: (ovarian cystectomy). The reason for surgery is pelvic pain and adnexal mass. Date of procedure: (12/20/2016). Planned anesthesia: general anesthesia. There have been no problems with general anesthesia, blood/blood products, or surgery in the past. The patient has no identifiable cardiac risk factors. There are no identifiable risk factors for post operative thromboembolism. In depth conversation with the patient/guardian concerning the procedure, risks, complications, benefits, alternatives, success, possible failure and need for further surgery or intervention questions were answered and no guarantees were made. Problem List/Past Medical (Tiffany Larose RN; 12/19/2016 3:28 PM) Asthma (493.92) Pulmonary Nodule (793.1) Dx 2012 Depression (311.) (F32.9) Endometriosis (N80.9) Dx 2016 Allergies (Tiffany Larose RN; 12/19/2016 3:21 PM) PenicillAMINE *ASSORTED CLASSES* Hives. Family History (Tiffany Larose RN; 12/19/2016 3:25 PM) Breast Cancer Maternal Grandmother, Maternal Aunt. Ovarian Cancer Maternal Great Grand Mother Melanoma Maternal Grandfather. Congestive Heart Failure Maternal Grandfather. Eczema Mother, Brother. Depression Mother, Aunt, Uncle. Social History (Tiffany Larose RN; 12/19/2016 3:22 PM) Current Work/Study Status Full-time. 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 Tobacco use Never smoker. Medication History (Tiffany Larose RN; 12/19/2016 3:21 PM) Vicodin (5-300MG Tablet, 1 Oral every 6 hours) Active. Zofran (4MG Tablet, Oral as needed) Active. Ibuprofen (800MG Tablet, 1 Oral every 8 hours) Active. Vitamin D3 (2000UNIT Tablet, 4,0000 Oral daily) Active. Vitamin B Complex Improved (Oral daily) Specific dose unknown - Active. Ambien (10MG Tablet, 1 Oral at bedtime, as needed) Active. (Fills #30 four times per year) Albuterol (90MCG/ACT Aerosol Soln, Inhalation as needed) Active. (Uses twice a year) Fish Oil Burp-Less (Oral daily) Specific dose unknown - Active. Vitamin C (Oral daily) Specific dose unknown - Active. Medications Reconciled / History (Tiffany Larose RN; 12/19/2016 3:28 PM) Pregnancies () 0 Past Surgical History (Tiffany Larose RN; 12/19/2016 3:29 PM) APPENDECTOMY, LAPAROSCOPIC ([id number] Health Maintenance History (Tiffany Larose RN; 12/19/2016 3:29 PM) Pap [id number] Normal. Review of Systems (Marcio Arroyo M.D.; 12/19/2016 3:44 PM) General Not Present- Anorexia. Skin Not Present- Rash. HEENT Present- Visual Disturbances. Neck Not Present- Neck Stiffness. Respiratory Not Present- Chronic Cough and Shortness of Breath. Breast Present- Breast Mass (left axillary area, "feels wrong"). Not Present- Breast Pain, Nipple Discharge and Skin Changes. Cardiovascular Not Present- Chest Pain. Gastrointestinal Not Present- Bloody Stool and Change in Bowel Habits. Female Genitourinary Not Present- Blood in Urine, Dysuria, Frequency, Hematuria , Incontinence, Urgency, Vaginal Discharge, Vaginal itching/burning and Vulvar itching. Musculoskeletal Not Present- Joint Redness. Neurological Not Present- Focal Neurological Symptoms. Endocrine Not Present- Hot flashes. Hematology Not Present- DVT and Spontaneous Bleeding. Vitals (Tiffany Larose RN; 12/19/2016 3:19 PM) 12/19/2016 3:18 PM Weight: 140 lb Height: 68in Body Surface Area: 1.76 m Body Mass Index: 21.29 kg/m LMP: 11/29/2016 BP: 112/66 (Sitting, Left Arm, Standard) Physical Exam (Marcio Arroyo M.D.; 12/19/2016 5:56 PM) General General Appearance-Not in acute distress. Build & Nutrition-Normal. Integumentary Integumentary General Characteristics Overall examination of the patient's skin reveals - no rashes. Head and Neck Neck Global Assessment - full range of motion, No lymphadenopathy. Thyroid Gland Characteristics - normal size and consistency and no palpable nodules. ENMT Mouth and Throat Oral Cavity/Oropharynx - Oropharynx - no evidence of airway distress observed. Chest and Lung Exam Chest and lung exam reveals -Clear and quiet, even and easy respiratory effort with no use of accessory muscles. Breast [employer] Internship-present for exam. Nipples Characteristics - Bilateral - Normal. Breast - Bilateral-Symmetric, Mildly tender, No Peau d[place]. Breast Lump-No Palpable Breast Mass. Cardiovascular Cardiovascular examination reveals -normal heart sounds, regular rate and rhythm with no murmurs. Abdomen Inspection Inspection of the abdomen reveals - No Hernias. Palpation/Percussion Palpation and Percussion of the abdomen reveal - Soft, No hepatosplenomegaly and No Palpable abdominal masses. Tenderness - Right Lower Quadrant. Other Characteristics - Costovertebral angle tenderness - Left(mild) and Costovertebral angle tenderness - Right(mild). Female Genitourinary External Genitalia Vulva - Characteristics - Normal. Labia Majora - Characteristics - Bilateral - Normal. Perineum - Normal. Clitoris - Normal. Labia Minora - Characteristics - Bilateral - Normal. Introitus - Characteristics - Non Tender. Bartholin's Gland - Bilateral - Non Tender. Urethra - Characteristics - Normal. Urethral Meatus - Characteristics - No Urethral Caruncle. Vida Gland - Bilateral - Normal. Speculum & Bimanual Vagina - Vaginal Wall - Normal. Vaginal Lesions - None. Vaginal Mucosa - [place] and [place], No Secretions. Cervix - Characteristics - Motion tenderness(on right side) and Nulliparous. Uterus - Characteristics - Non Tender. Position - Anteverted. Adnexa - Characteristics - Left - Non Tender, Ovary not enlarged. Right - Tender. Bilateral - Non Tender. Right Adnexal Mass - Size - 4 cm (Height ) and 4 cm (Width). Consistency - Cystic. Bladder - Not Tender. [employer] Internship-present for exam . Peripheral Vascular Lower Extremity Palpation - Tenderness - Bilateral - Non Tender. Edema - Bilateral - No edema. Neuropsychiatric Mental status exam performed with findings of-Oriented X3 with appropriate mood and affect. Lymphatic Axillary General Axillary Region: Left - Description - Localized lymphadenopathy. Size - 1.0 cm. Consistency - Firm. Mobility - Mobile. Overlying skin - Normal. Tenderness - Tender. Supraclavicular Nodes: Bilateral - Supraclavicular Lymph Nodes - No supraclavicular lymphadenopathy. Assessment & Plan (Marcio Arroyo M.D.; 12/19/2016 6:04 PM) Complex cyst of right ovary (N83.291) Impression: Discussed with patient the likely nature of the cyst and other etiologies including possible endometrioma or less likely an ovarian tumor. Discussed options including continued expectant management versus laparoscopy with cystectomy. Pain has actually been worsening and is negatively impacting her life. She would like to proceed with surgery. Discussed procedure and answered questions. Scheduled for the morning at [facility] [place]. Current Plans THERAPEUTIC LAPAROSCOPY FOR OVARIAN CYSTECTOMY (27281) Pt Education - Laparoscopy for Adnexal Masses: adnexal mass Started Hydrocodone-Acetaminophen 5-300MG, 1 (one) Tablet every four hours, as needed, #30, 5 days starting 12/19/2016, No Refill. Medical Decision Making (Marcio Arroyo M.D.; 12/19/2016 6:07 PM) Approximately a total of 60 minutes spent in discussion with more than 50% spent in counseling. Signed by Marcio Arroyo M.D. (12/19/2016 6:08 PM) JN
== END 2016-12-20 10:27 | disposition home or self-care (01) ==
LOC: SDS 06:24
PROVIDERS: ATTEND Obstetrics & Gynecology
DX: N83.11 Corpus luteum cyst of right ovary (principal); J45.909 Unspecified asthma, uncomplicated
CPT/HCPCS: J1885; J2250; J2270; J2405

== ENCOUNTER 2017-01-06 17:20 | Emergency (ER) | payer OTHER, MEDICAID ==
[2017-01-06 18:11] LABS: BASOPHIL# 0.2 X 10^3uL (0.0-0.1); BASOPHILS 2.5 % (0.0-2.0); EOSINOPHILS 1.1 % (0.0-6.0); EOSINOPHILS# 0.1 X 10^3uL (0.0-0.4); HEMATOCRIT 44.2 % (36.0-48.0); HEMOGLOBIN 14.8 g/dL (12.0-16.0); LYMPHOCYTES 25.6 % (20.0-40.0); LYMPHOCYTES# 2.1 X 10^3uL (0.8-3.8); MEAN CELL VOLUME 93.3 fL (80.0-100.0); MEAN CORPUS. HGB CONCENTRATION 33.5 g/dL (32.0-36.0); MEAN CORPUSCULAR HEMOGLOBIN 31.3 pg (29.0-35.0); MEAN PLATELET VOLUME 7.3 fL (7.4-10.4); MONOCYTES# 0.5 X 10^3uL (0.2-1.0); NEUTROPHILS 64.8 % (54.0-75.0); NEUTROPHILS# 5.4 X 10^3uL (2.6-6.7); PLATELET COUNT 363 X 10^3uL (130-440); RED BLOOD COUNT 4.74 X 10^6uL (4.20-6.10); RED CELL DISTRIBUTION WIDTH 12.6 % (11.5-14.5); WHITE BLOOD COUNT 8.3 X 10^3uL (3.9-10.7)
[2017-01-06] MEDS ORDERED: HYDROmorphone HCL 1 MG/ML SYR ONE ×2 (18:12→20:32)
[2017-01-06] MEDS ORDERED: ONDANSETRON HCL 4 MG/2 ML VIAL ONE (18:13)
[2017-01-06] MEDS ORDERED: LORazepam 2 MG/ML INJ ONE (18:13)
--- NOTE | 2017-01-06 18:59 | CT REPORT ---
HISTORY: History of right-sided ovarian cyst. COMPARISON: Ultrasound 12/18/2016, CT 12/18/2016. TECHNIQUE: This examination was performed using automated exposure control, adjustment of mA or kV according to patient size, and/or use of iterative reconstruction technique. Multiple contiguous transaxial image s of the pelvis were obtained from the mid abdomen through the pubic symphysis with IV contrast. 100cc Isovue 300 contrast. FINDINGS: There is no mass. Is trace intraperitoneal fluid which is within normal limits. There is no mesente luan edema or inflammation. The visualized bowel is unremarkable. The urinary bladder is unremarkabl e. No bony abnormality is identified. Pelvic vascular structures unremarkable. No pathologic adeno ale is identified. The uterus is unremarkable. The right ovary is unremarkable. There are 2 adjacent left-sided ovarian follicular cysts, the largest is 2.0 cm, the smaller is 1.6 cm in dimension, these are within normal limits area the appendix is not identified. There are surgical clips noted adjacent to the cecum sugg esting prior appendectomy. IMPRESSION: Trace intraperitoneal fluid within normal limits. Incidental left-sided ovarian follicular cysts, the previously demonstrated right-sided ovarian cyst is not visualized. Final Electronic Signature: This report was electronically signed by Marlon Alex MD, FACR on 2016 6:57 PM. [email or web address] /
[2017-01-06] MEDS ORDERED: KETOROLAC TROMETHAMINE 30 MG/ML VIAL ONE (19:21)
[2017-01-06] MEDS ORDERED: ONDANSETRON ODT PREPAC 4 MG TAB.RAPDIS PO ONE (19:35)
[2017-01-06] MEDS ORDERED: HYDROcodone/APAP PREPAC 5/325 1 TAB TABLET PO ONE (19:44)
--- NOTE | 2017-01-06 21:17 | ER PHYSICIAN DOCUMENTATION ---
Physician Documentation [facility] Name:Nicolasa Wasserman Age:36 yrs Sex:Female :1980 Arrival Date:01/06/2017 Time:17:20 Bed3 Private MD:Sydni Jay ED, Tom Disposition: 01/06/17 19:06 Discharged to Home/Self Care. Impression: Pelvic Pain. - Condition is Good. - Discharge Instructions: PELVIC PAIN, Unknown Cause. - Prescriptions for Dickinson 5- 325 mg Oral Tablet - take 1 tablet by ORAL route every 6 hours As needed; 20 tablet. Zofran 4 mg Oral Tablet - take 1-2 tablet by ORAL route every 4-6 hours As needed; 10 tablet. - Medical Reconciliation form form. - Follow up: Marcio Arroyo MD; When: Tomorrow; Reason: Recheck today's complaints, Continuance of care. - Problem is new. - Symptoms have improved. HPI: 01/06 17:50 This 36 yrs old Female presents to ER via Private Vehicle with complaints of tl1 Pelvic Pain. 17:50 Onset: The symptoms/episode began/occurred gradually, 2 day(s) ago. She says she had a tl1 right ovarian cystectomy [address] Arroyo and was fine at her 1 week f/u. 2 days ago she went rock climbing, was leading, and fell about 3 feet above her last protections. She was OK at the time but later noted some soreness in her right pelvic area which has progressed to the point that it is now severe. She has not been sexually active since the surgery. She denies vaginal bleeding or d/c. No f/c/s. She has been nauseated, and a little lightheaded, but has not vomited. No change in bowel habits or any urinary symptoms.. Historical: - Allergies: PENICILLINS; - Home Meds: 1. hydromorphone Oral 2. Motrin Oral 3. Ambien Oral 4. Albuterol Nebulizer - PMHx: Ovarian Cyst - : 4 cm sizeComplex (December 18, 2016); Pelvic Pain (December 18, 2016); - PSHx: ovarian cyst removal; APPENDECTOMY; Scope for endometriosis; - Tetanus: < 10 years. - Ebola Screening: : No symptoms or risks identified at this time. . - Immunization history: Flu Vaccine unknown. - Social history: Smoking status: Patient states was never smoker of tobacco. Patient uses alcohol occasionally. ROS: 18:07 Positive for pelvic pain, Negative for hematuria, flank pain, burning with tl1 urination, difficulty urinating, vaginal bleeding, vaginal discharge. 18:07 All other systems are negative. Exam: 18:33 Head/Face: Normocephalic, atraumatic. tl1 18:33 Constitutional: The patient appears alert, awake, well developed, well hydrated, well groomed, agitated, in obvious distress, moderately distressed, in obvious pain, restless, uncomfortable. 18:33 Cardiovascular: Rate: normal, Rhythm: regular, Heart sounds: normal. 18:33 Respiratory: Respirations: normal, Breath sounds: are normal. 18:33 Abdomen/GI: Inspection: abdomen appears normal, Bowel sounds: active, Palpation: soft, moderate abdominal tenderness, in the right lower quadrant, mass, is not appreciated, rebound tenderness, voluntary guarding, is elicited in the right lower quadrant. 18:33 Back: CVA tenderness, is absent. 18:33 : Pelvic Exam: External exam: is normal, Speculum exam: normal findings, no bleeding is noted, bimanual exam reveals cervical motion tenderness, os that is closed, normal sized uterus, uterine tenderness, right adnexal tenderness, no adnexal mass on right, Sexual behavior: the patient is not sexually active. 18:33 Musculoskeletal/extremity: Exam is negative for acute changes. 18:33 Skin: Exam negative for acute changes. Vital Signs: 17:30 BP 135 / 99; Pulse 91; Resp 16; Temp 98.0; Pulse Ox 99% ; Weight 63.5 kg; Height 5 ft. ma 9 in. (175.26 cm); Pain 7/10; 18:06 BP 113 / 76; Pulse 78; Pulse Ox 99% on R/A; ma 19:16 BP 111 / 78; Pulse 81; Pulse Ox 98% ; Pain 5/10; ma 20:26 BP 123 / 84; Pulse 76; Pulse Ox 95% ; Pain 7/10; ma 21:14 BP 130 / 74; Pulse 88; Pulse Ox 94% ; Pain 4/10; ma 17:30 Body Mass Index 20.67 (63.50 kg, 175.26 cm) ma 20:26 Dilaudid given as noted ma MDM: 18:01 Patient medically screened. tl1 18:38 Differential diagnosis: ovarian cyst, Post-operative bleeding. Data reviewed: vital tl1 signs, and as a result, I will. Counseling: I had a detailed discussion with the patient and/or guardian regarding: the historical points, exam findings, and any diagnostic results supporting the discharge/admit diagnosis, radiology results. Physician consultation: Shantell Montes MD was called at 19:00, was contacted at 19:00, regarding. 19:36 Physician consultation: Shantell Montes MD was called at 19:00, was contacted at 19:20, tl1 Unable to see patient in ED as she was on her way to an emergent C section. After discussing this with Dr Montes, I felt comfortable sending the patient home with close f/u tomorrow with Dr Arroyo in clinic. U/A is pending at this time and will be addressed as appropriate.. 01/06 18:15 Order name: HCG, SERUM; Complete Time: 18:27 EDMS 01/06 18:24 Interpretation: Normal: HCG, SERUM NEGATIVE. tl1 01/06 18:17 Order name: CBC AUTO DIF, MDIF/RMOR IF IND; Complete Time: 18:27 EDMS 01/06 18:24 Interpretation: WHITE BLOOD COUNT 8.3; HEMOGLOBIN 14.8; HEMATOCRIT 44.2; PLATELET COUNT tl1 363. 01/06 19:00 Order name: CAT SCAN; PELVIS W/CON [id number]; Complete Time: 19:22 EDMS Dispensed Medications: 17:58 Drug: NS 0.9% 1000 ml; Route: IV; Rate: bolus; Site: left antecubital; Delivery: ma [place] Tubing; 18:50 Follow up: IV Status: Completed infusion; IV Intake: 1000ml ma 18:03 Drug: Dilaudid 0.5 mg; Route: IVP; Rate: per protocol; Infused Over: 3 mins; Site: left vt antecubital; 19:17 Follow up: Response: Pain is decreased ma 18:05 Drug: Zofran 4 mg; Route: IVP; Rate: per protocol; Infused Over: 2 mins; Site: left vt antecubital; 19:18 Follow up: Response: Nausea is decreased ma 18:09 Drug: Ativan 0.5 mg; Route: IVP; Rate: per protocol; Infused Over: 3 mins; Site: left vt antecubital; 19:18 Follow up: Response: Anxiety decreased ma 19:19 Drug: Toradol 30 mg; Route: IVP; Rate: per protocol; Infused Over: 3 mins; Site: left vt antecubital; 19:36 Follow up: Response: Pain is decreased ma 19:36 Drug: Zofran 1 tablet; Route: PO; ma 21:15 Follow up: Response: Pharmacy closed - take home med pack ma 19:39 Drug: HYDROcodone-acetaminophen (5mg/325 mg) 1-2 tabs 2 tabs; Route: PO; ma 21:15 Follow up: Response: Pharmacy closed - take home med pack ma 19:41 Drug: HYDROcodone-acetaminophen (5mg/325 mg) 1-2 tabs 6 tabs; Route: PO; ma 21:15 Follow up: Response: Pharmacy closed - take home med pack ma 19:41 Drug: NS 0.9% 1000 ml; Route: IV; Rate: bolus; Site: left antecubital; Delivery: vt [place] Tubing; 20:25 Follow up: IV Status: Completed infusion; IV Intake: 1000ml ma 20:26 Drug: Dilaudid 1 mg; Route: IVP; Rate: per protocol; Infused Over: 3 mins; Site: left vt antecubital; 21:15 Follow up: Response: No adverse reaction; Pain is decreased vt Point of Care Testing: Urine Dip: 20:22 pH: 6.5; ; Specific [place]: 1.015; Ketones: Moderate; Glucose: Negative; Protein: em3 Negative; Leukocytes: Negative; Nitrite: Negative ; Blood: Non Hemolyzed Trace; Bilirubin: Negative ; Urobilinogen: Normal Signatures: Winifred Humphrey, RN Sherman Perea ma, MD MD tl1
--- NOTE | 2017-01-06 21:17 | ER NURSING DOCUMENTATION ---
Nurse's Notes [facility] Name:Nicolasa Wasserman Age:36 yrs Sex:Female :1980 Arrival Date:01/06/2017 Time:17:20 Bed3 Private MD:Sydni Jay Diagnosis:Pelvic Pain Presentation: 01/06 17:22 Acuity: LAN 3 fl 17:33 Presenting complaint: Patient states: Pt states she had ovarian cyst removal by Dr Jailene marks States was rock climbing Saturday when she slipped getting jerked in harness States has has RLQ pain since. Transition of care: Home. 17:33 Method Of Arrival: Private Vehicle fl Triage Assessment: 17:29 General: Appears uncomfortable, Behavior is cooperative. Pain: Complains of pain in ma right lower quadrant Pain At worst was 7 out of 10 on a pain scale. Historical: - Allergies: PENICILLINS; - Home Meds: 1. hydromorphone Oral 2. Motrin Oral 3. Ambien Oral 4. Albuterol Nebulizer - PMHx: Ovarian Cyst - : 4 cm sizeComplex (December 18, 2016); Pelvic Pain (December 18, 2016); - PSHx: ovarian cyst removal; APPENDECTOMY; Scope for endometriosis; - Tetanus: < 10 years. - Ebola Screening: : No symptoms or risks identified at this time. . - Immunization history: Flu Vaccine unknown. - Social history: Smoking status: Patient states was never smoker of tobacco. Patient uses alcohol occasionally. Screenin:30 Infectious Disease Risk None. Abuse screen: Denies threats or abuse. Nutritional ma screening: No deficits noted. Assessment: 17:31 GI: Abdomen is flat, Abd is soft X 4 quads. ma Vital Signs: 17:30 BP 135 / 99; Pulse 91; Resp 16; Temp 98.0; Pulse Ox 99% ; Weight 63.5 kg; Height 5 ft. ma 9 in. (175.26 cm); Pain 7/10; 18:06 BP 113 / 76; Pulse 78; Pulse Ox 99% on R/A; ma 19:16 BP 111 / 78; Pulse 81; Pulse Ox 98% ; Pain 5/10; ma 20:26 BP 123 / 84; Pulse 76; Pulse Ox 95% ; Pain 7/10; ma 21:14 BP 130 / 74; Pulse 88; Pulse Ox 94% ; Pain 4/10; ma 17:30 Body Mass Index 20.67 (63.50 kg, 175.26 cm) ma 20:26 Dilaudid given as noted ma ED Course: 17:21 Patient arrived in ED. arc 17:21 Syndi Jay DO is Private Physician. arc 17:22 Winifred Humphrey, RN is Primary Nurse. ma 17:22 Triage completed. ma 17:30 Valuables Remains with patient Patient has correct armband on for positive ma identification. Placed in gown. Bed in low position. Call light in reach. Side rails up X 1. Pulse Ox - RN Monitoring Only NIBP On - RN Monitoring Only. 17:51 Sherman Gaviria MD is Attending Physician. tl1 17:55 Inserted peripheral IV: 20 gauge in left antecubital area and blood collected. ma 18:20 Assist Provider Assist provider with pelvic exam: Set up pelvic tray. Performed by Sherman Gaviria MD Patient tolerated well. 18:[address] pm1 18:[address] pm1 19:06 Marcio Arroyo MD is Referral Physician. tl1 20:58 Discontinued lock intact, bleeding controlled, pressure dressing applied, No em3 redness/swelling at site. Administered Medications: 17:58 Drug: NS 0.9% 1000 ml; Route: IV; Rate: bolus; Site: left antecubital; Delivery: ma [place] Tubing; 18:50 Follow up: IV Status: Completed infusion; IV Intake: 1000ml ma 18:03 Drug: Dilaudid 0.5 mg; Route: IVP; Rate: per protocol; Infused Over: 3 mins; Site: left fl antecubital; 19:17 Follow up: Response: Pain is decreased ma 18:05 Drug: Zofran 4 mg; Route: IVP; Rate: per protocol; Infused Over: 2 mins; Site: left fl antecubital; 19:18 Follow up: Response: Nausea is decreased ma 18:09 Drug: Ativan 0.5 mg; Route: IVP; Rate: per protocol; Infused Over: 3 mins; Site: left fl antecubital; 19:18 Follow up: Response: Anxiety decreased ma 19:19 Drug: Toradol 30 mg; Route: IVP; Rate: per protocol; Infused Over: 3 mins; Site: left fl antecubital; 19:36 Follow up: Response: Pain is decreased ma 19:36 Drug: Zofran 1 tablet; Route: PO; ma 21:15 Follow up: Response: Pharmacy closed - take home med pack ma 19:39 Drug: HYDROcodone-acetaminophen (5mg/325 mg) 1-2 tabs 2 tabs; Route: PO; ma 21:15 Follow up: Response: Pharmacy closed - take home med pack ma 19:41 Drug: HYDROcodone-acetaminophen (5mg/325 mg) 1-2 tabs 6 tabs; Route: PO; ma 21:15 Follow up: Response: Pharmacy closed - take home med pack ma 19:41 Drug: NS 0.9% 1000 ml; Route: IV; Rate: bolus; Site: left antecubital; Delivery: fl [place] Tubing; 20:25 Follow up: IV Status: Completed infusion; IV Intake: 1000ml ma 20:26 Drug: Dilaudid 1 mg; Route: IVP; Rate: per protocol; Infused Over: 3 mins; Site: left fl antecubital; 21:15 Follow up: Response: No adverse reaction; Pain is decreased fl Point of Care Testing: Urine Dip: 20:22 pH: 6.5; ; Specific [place]: 1.015; Ketones: Moderate; Glucose: Negative; Protein: em3 Negative; Leukocytes: Negative; Nitrite: Negative ; Blood: Non Hemolyzed Trace; Bilirubin: Negative ; Urobilinogen: Normal Intake: 18:50 IV: 1000ml; Total: 1000ml. ma 20:25 IV: 1000ml; Total: 2000ml. fl Outcome: 19:06 Discharge ordered by MD. barnes 21:16 Discharged to home fl 21:16 Condition: stable 21:16 Discharge instructions given to patient, Instructed on discharge instructions, follow up and referral plans. medication usage, Demonstrated understanding of instructions, medications, Prescriptions given X 2. 21:16 Patient left the ED. fl 01/07 09:30 Discharge F/U Call: Unable to reach: no answer st Signatures: Amina Vasquez, RN RN Winifred Cesar RN RN Rasheed Hua pm1 Dean Morse em3 Sherman Gaviria MD MD tl1 Litzy Heredia, Reg Reg arc
== END 2017-01-06 21:17 | disposition home or self-care (01) ==
LOC: ER 17:20
DX: R10.2 Pelvic and perineal pain (principal); R10.31 Right lower quadrant pain; Z98.890 Other specified postprocedural states
CPT/HCPCS: 72193; 84703; 85025; 96361; 96374; 96375; 96376; 99284; J1170; J1885; J2060; J2405

== ENCOUNTER 2017-02-18 14:59 | Emergency (ER) | payer MEDICAID ==
[2017-02-18 15:56] LABS: BLOOD UREA NITROGEN 10 mg/dL (7-17); CHLORIDE 106 mmol/L (98-107); CREATININE 0.9 mg/dL (0.5-1.0); EST GLOMERULAR FILTRATION RATE > 60 mL/min; GLUCOSE 103 mg/dL (70-100); POTASSIUM 3.9 mmol/L (3.5-5.1); SODIUM 141 mmol/L (137-145)
[2017-02-18 16:13] LABS: BASOPHILS 0.5 % (0.0-2.0); EOSINOPHILS 1.9 % (0.0-6.0); EOSINOPHILS# 0.1 X 10^3uL (0.0-0.4); HEMATOCRIT 40.8 % (36.0-48.0); HEMOGLOBIN 13.7 g/dL (12.0-16.0); LYMPHOCYTES 34.1 % (20.0-40.0); LYMPHOCYTES# 1.8 X 10^3uL (0.8-3.8); MEAN CELL VOLUME 93.7 fL (80.0-100.0); MEAN CORPUS. HGB CONCENTRATION 33.6 g/dL (32.0-36.0); MEAN CORPUSCULAR HEMOGLOBIN 31.5 pg (29.0-35.0); MEAN PLATELET VOLUME 7.6 fL (7.4-10.4); MONOCYTES# 0.3 X 10^3uL (0.2-1.0); NEUTROPHILS 57.5 % (54.0-75.0); PLATELET COUNT 253 X 10^3uL (130-440); RED BLOOD COUNT 4.35 X 10^6uL (4.20-6.10); RED CELL DISTRIBUTION WIDTH 12.1 % (11.5-14.5); WHITE BLOOD COUNT 5.2 X 10^3uL (3.9-10.7)
[2017-02-18] MEDS ORDERED: KETOROLAC TROMETHAMINE 60 MG/2 ML VIAL ONE (16:33)
--- NOTE | 2017-02-18 16:33 | ER PHYSICIAN DOCUMENTATION ---
Physician Documentation [facility] Name:Nicolasa Wasserman Age:36 yrs Sex:Female :1980 Arrival Date:02/18/2017 Time:14:59 Bed3 Private MD: Edilson Ward Disposition: 02/18/17 16:22 Discharged to Home/Self Care. Impression: Pelvic Pain - : Chronic; Unknown Etiology. - Condition is Fair. - Discharge Instructions: PELVIC PAIN, Unknown Cause. - Prescriptions for Zofran 4 mg Oral - take 1 tablet by ORAL route every 6 hours; 6 tablet. - Medical Reconciliation form form. - Follow up: Marcio Arroyo MD; When: 4- 6 days; Reason: Recheck today's complaints, Continuance of care. - Problem is chronic. - Symptoms are unchanged. - Notes: Drink plenty of fluids. Follow up with Dr. Cruz LAMAS for further evaluation. Take Zofran 4mg under your tongue every 6 hours as needed for pain. Take Ibuprofen 600mg by mouth every 6 hours with food for 2 - 3 days. Take your Percocet 1 tab by mouth every 6 hours for severe pain. You have received a shot of Toradol 60mg IM for pain. HPI: 02/18 15:05 This 36 yrs old Female presents to ER via Private Vehicle with complaints of cd Abdominal Pain, Lower. 15:05 The patient presents with abdominal pain in the left lower quadrant. Onset: The cd symptoms/episode began/occurred. 15:05 Onset: The symptoms/episode began/occurred This has been an ongoing problem since her cd right ovary was resected due to an ovarian cyst in December. She was seen 2 days ago at [facility] for the same. Full lab work was done and normal. US of the pelvis was completely normal. She was given Morphine Sulfate 4 mg IV and discharged on Percocet. She states that the Percocet is not touching her pain. She went to see Dr. Hanks this afternoon. A CT Scan of the Abdomen with and without contrast was performed and found to be completely normal. She was given Tylenol. On her way home she decided to turn around and come to the ED for evaluation and pain meds.. Associated signs and symptoms: Pertinent positives: nausea, Pertinent negatives: anorexia, fever, shortness of breath, vomiting, vomiting blood. The symptoms are described as constant. Severity of pain: At its worst the pain was moderate in the emergency department the pain is unchanged. The patient has experienced similar episodes in the past. Historical: - Allergies: PENICILLINS; - Home Meds: 1. hydromorphone Oral 2. Motrin Oral 3. Ambien Oral 4. Albuterol Nebulizer - PMHx: Pelvic Pain (December 18, 2016); Pelvic Pain (January 06, 2017); Ovarian Cyst - : 4 cm sizeComplex (December 18, 2016); - PSHx: ovarian cyst removal; APPENDECTOMY; Scope for endometriosis; - Tetanus: < 10 years. - Ebola Screening: : Patient negative for fever greater than or equal to 101.5 degrees Fahrenheit, and additional compatible Ebola Virus Disease symptoms. Patient denies exposure to infectious person. Patient denies travel to an Ebola-affected area in the 21 days before illness onset. . - Immunization history: Flu Vaccine < 1 year. - Social history: Smoking status: Patient states was never smoker of tobacco. ROS: 15:10 Constitutional: Negative for chills, fever, poor PO intake. cd 15:10 Abdomen/GI: Positive for abdominal pain, nausea, anorexia, Negative for vomiting, diarrhea, abdominal distension, hematemesis, black/tarry stool, rectal bleeding. 15:10 : Positive for pelvic pain, Negative for urinary symptoms, flank pain, burning with urination, foul smelling urine, vaginal bleeding, vaginal discharge. 15:10 All other systems are negative. Exam: 15:10 ENT: Nares patent. No nasal discharge, no septal abnormalities noted. Tympanic cd membranes are normal and external auditory canals are clear. Oropharynx with no redness, swelling, or masses, exudates, or evidence of obstruction, uvula midline. Mucous membranes moist. Cardiovascular: Regular rate and rhythm with a normal S1 and S2. No gallops, murmurs, or rubs. Normal PMI, no JVD. No pulse deficits. Respiratory: Lungs have equal breath sounds bilaterally, clear to auscultation and percussion. No rales, rhonchi or wheezes noted. No increased work of breathing, no retractions or nasal flaring. Back: No spinal tenderness. No costovertebral tenderness. Full range of motion. Skin: Warm, dry with normal turgor. Normal color with no rashes, no lesions, and no evidence of cellulitis. 15:10 MS/ Extremity: Pulses equal, no cyanosis. Neurovascular intact. Full, normal range cd of motion. 15:10 Constitutional: The patient appears alert, awake, comfortable, well developed, well nourished, in obvious distress, mildly distressed. 15:10 Abdomen/GI: Inspection: abdomen appears normal, Bowel sounds: normal, Palpation: moderate abdominal tenderness, in the right lower quadrant and left lower quadrant, Rectal exam: the exam is deferred, Indicators: McBurney's point is not tender, Merino's sign is negative. Vital Signs: 15:04 BP 124 / 92; Pulse 75; Resp 18; Temp 98.5(O); Pulse Ox 98% on R/A; Weight 63.5 kg (R); tg Height 5 ft. 9 in. (175.26 cm) (R); Pain 7/10; 16:23 BP 126 / 50; Pulse 69; Resp 16; Pulse Ox 94% on R/A; Pain 6/10; lp 15:04 Body Mass Index 20.67 (63.50 kg, 175.26 cm) tg MDM: 15:20 Differential diagnosis: diverticulitis, Ectopic , Irritable bowel syndrome, cd non-specific abd pain, Ureterolithiasis, urinary tract infection. 15:44 Patient medically screened. cd 15:52 Data interpreted: Pulse oximetry: on room air is 1520 %. Interpretation: normal. cd Special discussion: I discussed with the patient their frequent requests for pain medications. Instructions have been given, that in the best interests of the patient, further pain Rx's must come from the patient's PCP or a silo painter. Based on the history and exam findings, there is no indication for further emergent testing or inpatient evaluation. I discussed with the patient/guardian the need to see the silo painter for further evaluation of the symptoms. I ran the patient's PDMP record. She had denied narcotic use or prescriptions before November of this year. It is clear from the PDMP database record that she obtained prescriptions for narcotics (Oxycodone) in February x 2, March, April x 2, July x 2, and September of 2016. Also Nov., December x 6, January x 3 of 2016. Over 15 different physicians prescribed these controlled meds. She also received Ambien prescriptions three times in the last year. I presented this information to the patient and told her that I believe she is addicted to pain medication. I discussed with her the need for follow up with Dr. Dent...to determine if there is any physical cause for her Chronic Pelvic Pain. He may have to do Laparoscopy. Once Dr. Dent has exhausted his evaluation, if she is still in pain, she would be referred. ED course: I explained to the patient that she would not be receiving any narcotic medication from me.. 16:00 Data reviewed: vital signs, nurses notes, old medical records, lab test result(s), and cd as a result, I will discharge patient. 16:15 Counseling: I had a detailed discussion with the patient and/or guardian regarding: the cd historical points, exam findings, and any diagnostic results supporting the discharge/admit diagnosis, lab results, radiology results, the need for outpatient follow up, for a recheck, for a referral to a specialist, an OB/Gyne specialist, to return to the emergency department if symptoms worsen or persist or if there are any questions or concerns that arise at home. Response to treatment: the patient's symptoms have mildly improved after treatment, the patient's condition has returned to base line, and as a result, I will discharge patient. 02/18 16:14 Order name: CBC AUTO DIF, MDIF/RMOR IF IND; Complete Time: 16:20 EDMS 02/18 16:20 Interpretation: Normal. cd 02/18 16:17 Order name: BASIC METABOLIC PANEL; Complete Time: 16:20 EDMS 02/18 16:20 Interpretation: Normal. cd 02/18 16:17 Order name: HCG, SERUM; Complete Time: 16:20 EDMS 02/18 16:20 Interpretation: Normal. cd Dispensed Medications: 16:23 Drug: Toradol 60 mg; Route: IM; Site: left gluteus; lp 16:31 Follow up: Response: No adverse reaction; No change in condition lp Signatures: Angelia Calzada, RN RN lp Edilson Hernandez MD MD cd
--- NOTE | 2017-02-18 16:33 | ER NURSING DOCUMENTATION ---
Nurse's Notes [facility] Name:Nicolasa Wasserman Age:36 yrs Sex:Female :1980 Arrival Date:02/18/2017 Time:14:59 Bed3 Private MD: Diagnosis:Pelvic Pain-: Chronic; Unknown Etiology Presentation: 02/18 15:01 Presenting complaint: Patient states: Abdominal pain. Transition of care: Home. lp 15:01 Acuity: LAN 3 lp 15:01 Method Of Arrival: Private Vehicle lp Triage Assessment: 15:10 General: Appears in no apparent distress, Behavior is appropriate for age. lp 15:11 Pain: Complains of pain in right lower quadrant and left lower quadrant. EENT: No lp deficits noted. Neuro: No deficits noted. Cardiovascular: No deficits noted. Respiratory: No deficits noted. GI: No deficits noted. : No deficits noted. Derm: No deficits noted. Musculoskeletal: No deficits noted. Historical: - Allergies: PENICILLINS; - Home Meds: 1. hydromorphone Oral 2. Motrin Oral 3. Ambien Oral 4. Albuterol Nebulizer - PMHx: Pelvic Pain (December 18, 2016); Pelvic Pain (January 06, 2017); Ovarian Cyst - : 4 cm sizeComplex (December 18, 2016); - PSHx: ovarian cyst removal; APPENDECTOMY; Scope for endometriosis; - Tetanus: < 10 years. - Ebola Screening: : Patient negative for fever greater than or equal to 101.5 degrees Fahrenheit, and additional compatible Ebola Virus Disease symptoms. Patient denies exposure to infectious person. Patient denies travel to an Ebola-affected area in the 21 days before illness onset. . - Immunization history: Flu Vaccine < 1 year. - Social history: Smoking status: Patient states was never smoker of tobacco. Screenin:17 Infectious Disease Risk None. Abuse screen: Denies threats or abuse. Denies injuries lp from another. Nutritional screening: No deficits noted. Assessment: 15:13 GI: Abdomen is flat, non- distended. lp Vital Signs: 15:04 BP 124 / 92; Pulse 75; Resp 18; Temp 98.5(O); Pulse Ox 98% on R/A; Weight 63.5 kg (R); tg Height 5 ft. 9 in. (175.26 cm) (R); Pain 7/10; 16:23 BP 126 / 50; Pulse 69; Resp 16; Pulse Ox 94% on R/A; Pain 6/10; lp 15:04 Body Mass Index 20.67 (63.50 kg, 175.26 cm) ED Course: 15:00 Patient arrived in ED. blaire 15:01 Angelia Calzada, RN is Primary Nurse. lp 15:02 Triage completed. lp 15:[address] Hernandez notified. lp 15:18 Valuables Remains with patient Patient has correct armband on for positive lp identification. Placed in gown. Bed in low position. Call light in reach. Side rails up X2. ED physician of Dr. Hernandez notified. Door closed. Warm blanket given. 15:44 Edilson Hernandez MD is Attending Physician. cd 16:21 Marcio Arroyo MD is Referral Physician. cd Administered Medications: 16:23 Drug: Toradol 60 mg; Route: IM; Site: left gluteus; lp 16:31 Follow up: Response: No adverse reaction; No change in condition lp Outcome: 16:22 Discharge ordered by MD. cd 16:31 Discharged to home ambulatory. lp 16:31 Condition: stable 16:31 Instructed on discharge instructions, follow up and referral plans. medication usage. 16:32 Patient left the ED. lp 02/19 17:50 Discharge F/U Call: Unable to reach: non-working number ke Signatures: Juan Olivas, RN JESUS Angelia Calzada, RN Edilson Amos lp, MD MD cd Davies, Jackie, Reg Reg Akiko Borjas, RN JESUS peña
== END 2017-02-18 16:33 | disposition home or self-care (01) ==
LOC: ER 14:59
DX: R10.2 Pelvic and perineal pain (principal); R11.0 Nausea; Z79.899 Other long term (current) drug therapy
CPT/HCPCS: 80048; 84703; 85025; 96372; 99283; J1885